=== PATIENT | female | born 1990 | race Caucasian/White ===

== ENCOUNTER 2020-09-28 17:14 | Emergency (ER) | payer MEDICAID ==
[~2020-09-28] VITALS: Ht 160 cm; Wt 63.5 kg
[~2020-09-28 17:14] MED LIST: IBUP-974 PO; PREN-385 PO
[2020-09-28 18:15] VITALS: BP 107/58
--- NOTE | 2020-09-28 18:21 | NUR ---
PT SENT TO ER LOBBY TO WAIT FOR MSE AND AVAILABLE BED.
[2020-09-28 19:13] LABS: BASOPHILS # (AUTO) 0.1 K/uL (0.00-0.22); BASOPHILS % (AUTO) 0.8 % (0.0-2.0); EOSINOPHILS # (AUTO) 0.2 K/uL (0-0.4); EOSINOPHILS % (AUTO) 1.8 % (0.0-4.0); HEMATOCRIT 23.5 % (36-48); HEMOGLOBIN 7.7 g/dL (12.0-16.0); LYMPHOCYTES # (AUTO) 2.1 K/uL (2.5-16.5); LYMPHOCYTES % (AUTO) 21.2 % (20.5-51.1); MEAN CORPUSCULAR HEMOGLOBIN 27 pg (27-31); MEAN CORPUSCULAR HGB CONC 33 g/dL (33-37); MEAN CORPUSCULAR VOLUME 81.5 fL (80-94); MONOCYTES # (AUTO) 0.8 K/uL (0.8-1.0); MONOCYTES % (AUTO) 8.4 % (1.7-9.3); NEUTROPHILS # (AUTO) 6.8 K/uL (1.8-7.7); NEUTROPHILS % (AUTO) 67.8 % (42.2-75.2); PLATELET COUNT (AUTO) 462 K/uL (140-450); RED BLOOD CELL COUNT(AUTO) 2.88 MIL/uL (4.20-5.40); RED CELL DISTRIBUTION WIDTH 16.2 % (11.6-13.7); WHITE BLOOD COUNT (AUTO) 10.1 K/uL (4.8-10.8)
[2020-09-28 20:02] LABS: ALBUMIN 2.9 g/dL (3.4-5.0); CARBON DIOXIDE 29.4 mmol/L (21-32); CREATININE 0.9 mg/dL (0.6-1.3); POTASSIUM 4.4 mmol/L (3.5-5.1); TOTAL BILIRUBIN 0.4 mg/dL (0.0-1.0)
[2020-09-28 20:11] LABS: PROTHROMBIN TIME 10.6 secs (10.8-13.4)
--- NOTE | 2020-09-28 20:20 | NUR ---
Female Yarn Comber accompanied female patient for visual body inspection.
--- NOTE | 2020-09-28 20:40 | NUR ---
Patient discharged with v/s stable. Written and verbal after care instructions given and explained. Patient verbalized understanding. Ambulatory with steady gait. All questions addressed prior to discharge. Advised to follow up with PMD.
== END 2020-09-28 20:40 | disposition home or self-care (01) ==
LOC: MED 17:14
DX: D64.9 Anemia, unspecified (principal); R74.01 Elevation of levels of liver transaminase levels; Z88.0 Allergy status to penicillin; Z79.899 Other long term (current) drug therapy
CPT/HCPCS: 36415; 71045; 80053; 85025; 85610; 85730; 99284

== ENCOUNTER 2021-03-27 16:20 | Emergency (ER) | payer MEDICAID ==
[~2021-03-27] VITALS: Ht 160 cm; Wt 66.2 kg
[2021-03-27 16:33] VITALS: BP 105/65
--- NOTE | 2021-03-27 16:51 | NUR ---
30 YEAR OLD FEMALE COMPLAINS OF VAGINAL BLEEDING WITH CRAMPING X 2 WEEKS. PT STATES BLOOD WAS SPOTTING THEN TODAY THE BLEEDING HAD CLOTS. PT STATES SHE HAD POSITIVE 4 WEEKS AGO. PT DENIES N/V/D. PT AOX4, BREATHING EVEN AND UNLABORED, SKIN WARM AND DRY. BED IN LOWEST POSITION, LOCKED, BED RAIL UPX1. PMH - ASTHMA ALLERGIES - PCN
[2021-03-27 17:13] LABS: BASOPHILS % (AUTO) 0.8 % (0.0-2.0); EOSINOPHILS # (AUTO) 0.1 K/uL (0-0.4); EOSINOPHILS % (AUTO) 1.4 % (0.0-4.0); HEMATOCRIT 33.8 % (36-48); HEMOGLOBIN 11.3 g/dL (12.0-16.0); LYMPHOCYTES # (AUTO) 1.3 K/uL (2.5-16.5); LYMPHOCYTES % (AUTO) 23.6 % (20.5-51.1); MEAN CORPUSCULAR HEMOGLOBIN 28 pg (27-31); MEAN CORPUSCULAR HGB CONC 33 g/dL (33-37); MEAN CORPUSCULAR VOLUME 84.1 fL (80-94); MONOCYTES # (AUTO) 0.5 K/uL (0.8-1.0); NEUTROPHILS # (AUTO) 3.7 K/uL (1.8-7.7); NEUTROPHILS % (AUTO) 65.2 % (42.2-75.2); PLATELET COUNT (AUTO) 201 K/uL (140-450); RED BLOOD CELL COUNT(AUTO) 4.02 MIL/uL (4.20-5.40); RED CELL DISTRIBUTION WIDTH 15.5 % (11.6-13.7); WHITE BLOOD COUNT (AUTO) 5.6 K/uL (4.8-10.8)
--- NOTE | 2021-03-27 17:25 | NUR ---
US AT BEDSIDE
--- NOTE | 2021-03-27 18:06 | NUR ---
DR BRIAN AT BEDSIDE EVALUATING PT
[2021-03-27 18:29] LABS: APPEARANCE,URINE CLEAR (CLEAR); BILIRUBIN,URINE NEGATIVE (NEGATIVE); BLOOD, URINE NEGATIVE (NEGATIVE); COLOR,URINE YELLOW (YELLOW); LEUKOCYTE ESTERASE ,URINE NEGATIVE (NEGATIVE); NITRITE, URINE NEGATIVE (NEGATIVE); UGLUCOSE NEGATIVE (NEGATIVE)
--- NOTE | 2021-03-27 18:32 | NUR ---
RHOGAM ADMINISTERED ORDERED IM INTO RIGHT GLUTEUS LIZ
[2021-03-27 18:54] VITALS: BP 105/65
--- NOTE | 2021-03-27 18:55 | NUR ---
Patient discharged with v/s stable. Written and verbal after care instructions about threatened miscarriage given and explained. Patient verbalized understanding. Ambulatory with steady gait. All questions addressed prior to discharge. Advised to follow up with PMD.
== END 2021-03-27 18:54 | disposition home or self-care (01) ==
LOC: MED 16:20
DX: O20.0 Threatened abortion (principal); J45.909 Unspecified asthma, uncomplicated; Z88.0 Allergy status to penicillin; Z3A.08 8 weeks gestation of pregnancy
CPT/HCPCS: 36415; 36430; 76817; 81003; 81025; 84702; 85025; 86886; 86900; 86901; 99285; J2790

== ENCOUNTER 2021-03-29 12:00 | Emergency (ER) | payer MEDICAID ==
[~2021-03-29] VITALS: Ht 165.1 cm; Wt 54.4 kg
[2021-03-29 12:00] VITALS: BP 95/57
[2021-03-29 12:39] LABS: BASOPHILS # (AUTO) 0.1 K/uL (0.00-0.22); BASOPHILS % (AUTO) 0.5 % (0.0-2.0); EOSINOPHILS # (AUTO) 0.1 K/uL (0-0.4); HEMOGLOBIN 11.7 g/dL (12.0-16.0); LYMPHOCYTES # (AUTO) 2.3 K/uL (2.5-16.5); LYMPHOCYTES % (AUTO) 23.5 % (20.5-51.1); MEAN CORPUSCULAR HEMOGLOBIN 28 pg (27-31); MEAN CORPUSCULAR HGB CONC 33 g/dL (33-37); MEAN CORPUSCULAR VOLUME 83.8 fL (80-94); MONOCYTES # (AUTO) 0.5 K/uL (0.8-1.0); MONOCYTES % (AUTO) 5.1 % (1.7-9.3); NEUTROPHILS # (AUTO) 6.8 K/uL (1.8-7.7); NEUTROPHILS % (AUTO) 69.9 % (42.2-75.2); PLATELET COUNT (AUTO) 262 K/uL (140-450); RED BLOOD CELL COUNT(AUTO) 4.18 MIL/uL (4.20-5.40); RED CELL DISTRIBUTION WIDTH 15.7 % (11.6-13.7); WHITE BLOOD COUNT (AUTO) 9.8 K/uL (4.8-10.8)
[2021-03-29] MEDS ORDERED: NACL 0.9% 2,000 ML IV ONE (12:50)
[2021-03-29] MEDS ORDERED: NACL 0.9% 1,000 ML IV ONE (15:00)
[2021-03-29 16:33] VITALS: BP 103/68
== END 2021-03-29 16:28 | disposition home or self-care (01) ==
LOC: MED 12:00
DX: O03.9 Complete or unspecified spontaneous abortion without complication (principal); J45.909 Unspecified asthma, uncomplicated; D64.9 Anemia, unspecified; Z88.0 Allergy status to penicillin; Z79.899 Other long term (current) drug therapy
CPT/HCPCS: 36415; 76801; 84702; 85025; 86886; 86900; 86901; 96360; 96361; 99284; J7030; 86870